=== PATIENT | female | born 1940 | race Caucasian/White ===

== ENCOUNTER 2017-05-01 05:09 | Inpatient (IN) | payer MEDICARE, OTHER ==
[~2017-05-01] VITALS: Ht 157.5 cm; Wt 69.0 kg
--- NOTE | ~2017-05-01 | HP ---
PATIENT'S NAME: SHANIQUA CORONEL [facility] AGE: 76 Y [address] ROOM: [place] [address] LOCATION: GPCU ADMIT DATE: 05/01/2017 History & Physical DISCHARGE DATE: FAMILY PHYSICIAN: PHYSICIAN, UNKNOWN ATTENDING PHYSICIAN: VERNON HIGHTOWER V DATE OF SERVICE: CHIEF COMPLAINT: High blood sugars. HISTORY OF PRESENT ILLNESS: The patient is a 76-year-old female with past medical history of insulin- dependent diabetes, on an insulin pump; coronary artery disease, status post bypass in 2006; and stenting approximately 2 years ago. The patient presented to [place] yesterday afternoon with complaints of hyperglycemia. She was found to be in mild DKA and treated with subcutaneous insulin and improved. Subsequent to that, she was discharged and went to [facility], where she had a burger without buns as well as some ice cream. Initially, she felt well and subsequently developed nausea and once again has profound hyperglycemia. She went back to the ER in [place] and at this time, she was found to have a troponin of 2. Of note, the patient did have some pronounced ST depressions in leads V5 and V6 on her EKG from her first trip to the ER, though on the second EKG, those changes are not as profound. The patient herself does not endorse any new chest pain or shortness of breath. She endorses a chronic burning chest pain, which she has had for several years and which is exacerbated by rest. Aside from a single episode of vomiting, she has been asymptomatic. She attributes her hyperglycemia due to 2 weeks of psychological stress related to her 's hospitalization. REVIEW OF SYSTEMS: All systems have been reviewed and are negative aside from pertinent positives mentioned above. PAST MEDICAL HISTORY: 1. Insulin-dependent diabetes. 2. Diabetic nephropathy. 3. Coronary artery disease. 4. Status post CABG 20 years ago. 5. Status post stenting 2 years ago. PATIENT'S NAME: SHANIQUA CORONEL [facility] AGE: 76 Y [address] ROOM: [place] [address] LOCATION: GPCU ADMIT DATE: 05/01/2017 History & Physical DISCHARGE DATE: FAMILY PHYSICIAN: PHYSICIAN, UNKNOWN ATTENDING PHYSICIAN: VERNON HIGHTOWER V SURGICAL HISTORY: She has a history of hysterectomy. CURRENT MEDICATIONS: Insulin pump and the remainder is being compiled. FAMILY HISTORY: Reviewed and is noncontributory due to her advanced age and multiple medical problems. SOCIAL HISTORY: Negative for history or ongoing toxic habits. PHYSICAL EXAMINATION: VITAL SIGNS: Blood pressure 184/90, heart rate is 70, saturating 96% on room air, afebrile, respirations are 16. GENERAL APPEARANCE: A well-developed, well-nourished, elderly and frail female, in no acute distress. NEUROLOGIC: Nonfocal. HEENT: Pupils are equal and reactive to light. LYMPHATIC: No cervical lymphadenopathy. ENDOCRINE: No thyromegaly. LUNGS: Clear to auscultation in all field. HEART: Heart rate is regular with no appreciable murmurs, gallops, or rubs. GI: Abdomen is soft, nontender, nondistended. : No costovertebral angle tenderness. VASCULAR: 2+ pedal pulses. MUSCULOSKELETAL: No muscle or joint abnormalities. SKIN: Warm and dry. PSYCHIATRIC: Reveals appropriate mood, cognition, and affect. LABORATORY DATA: Review of the studies from outside facility is significant for a troponin I of 2.6, CK-MB 5.3, myoglobin of 338. Hemoglobin of 8.0, which is down from 10 earlier in the day. Creatinine of 1.7. Sodium of 138, potassium of 4.2, glucose 314, and an Accu-Chek of 160 here. Unremarkable coags. White count is 7.3. EKG shows sinus rhythm at 78 beats per minute with ST depressions in leads V2 through V6. No other abnormalities. ASSESSMENT AND PLAN: This is a 76-year-old female who will be admitted with: 1. Cmw-RC-dbihgfzeq myocardial infarction; at this point, we will start the patient on nitroglycerin drip due to her elevated blood pressure. I will also start her on heparin, aspirin, and check her lipids. We will request a Cardiology evaluation. We will also start the patient on IV PATIENT'S NAME: SHANIQUA CORONEL [facility] AGE: 76 Y [address] ROOM: [place] [address] [facility] AD[facility] DATE: 05/01/2017 History & Physical DISCHARGE DATE: FAMILY PHYSICIAN: PHYSICIAN, UNKNOWN ATTENDING PHYSICIAN: VERNON HIGHTOWER V hydration in anticipation of possible cardiac catheterization due to her diminished renal function. 2. Diabetic ketoacidosis, this has resolved and we will keep the patient n.p.o. and put her on a sliding scale. 3. Chronic kidney disease stage 3 by creatinine. We will hydrate the patient as above and monitor her renal function. We will consider Nephrology evaluation. 4. Insulin-dependent diabetes. The patient does not currently have her pump and she will be on sliding scale as above. 5. Additional management will depend on clinical course. Time dedicated to this patient's encounter is 35 minutes. MD GALINA HUANG/zenaida /[id number] D: [id number] T: [id number] HISTORY & PHYSICAL
--- NOTE | ~2017-05-01 | DS ---
PATIENT'S NAME: SHANIQUA CORONEL [facility] AGE: 76 Y [address] ROOM: [place] [address] LOCATION: GPCU ADMIT DATE: 05/01/2017 Discharge Summary DISCHARGE DATE: 05/06/2017 FAMILY PHYSICIAN: Physician, Unknown ATTENDING PHYSICIAN: Romoe Salinas V FINAL DIAGNOSES: 1. Non-ST elevation myocardial infarction, status post PCI of RCA with two drug-eluting stents on May 02, 2017, by Dr. Sierra. 2. Diabetic ketoacidosis. 3. Insulin-dependent diabetes mellitus, pump using. 4. Viral bronchitis. 5. Acute kidney injury on stage 3 chronic kidney disease. 6. Escherichia coli urinary tract infection. 7. Essential hypertension. 8. Orthostasis secondary to autonomic dysfunction. 9. Iatrogenic volume overload. HISTORY OF PRESENT ILLNESS: For details of admission, please see the history and physical dictated by Dr. Salinas. In short, the patient was transferred from [place]. She presented the day prior with complaints of hyperglycemia. She was found to have mild DKA, and she was initially treated and then had to return. When she was in the emergency room the second time, she was found to have ST changes and her troponin was elevated. At that time, she was transferred to [facility]. LABORATORY DATA: Sodium on admission was 140, discharge 138; potassium on admission 4.5, got as low as 3.3 on May 04, 2017, at discharge 4.7; BUN on admission was 31, discharge 28; creatinine on admission was 1.4, went up to 1.6 on May 01, 2017, and then returned to 1 at discharge. Cholesterol was 96, HDL 44, LDL 40. Her iron was 87, iron binding capacity 181, percent sat 48. CK on admission was 235. Troponin on admission was 6.79 and then did gradually decline. ProBNP on May 03, 2017, was 16,957. Folate was 344. White blood cell count on admission was 6.6, hemoglobin 8.5, hematocrit 25.5, platelet count 167. Her counts remain stable during the hospital stay. Urine culture in the hospital grew E. coli greater than 100,000 colonies. X-RAY DATA: A chest x-ray done for coughing and wheezing did show vascular congestion. Echocardiogram showed the EF to be 60%. She had grade 2 diastolic dysfunction, mild pulmonary hypertension. HOSPITAL COURSE: The patient was admitted to PCU with the diagnosis of acute coronary syndrome. She was started on IV heparin, nitroglycerin, given an aspirin. She is also started on IV insulin to help control her blood sugar. She was seen in consultation by Dr. Sierra and medications were adjusted PATIENT'S NAME: SHANIQUA CORONEL [facility] AGE: 76 Y [address] ROOM: [place] [address] LOCATION: GPCU ADMIT DATE: 05/01/2017 Discharge Summary DISCHARGE DATE: 05/06/2017 FAMILY PHYSICIAN: Physician, Unknown ATTENDING PHYSICIAN: Romeo Salinas V including adjusting her beta odilon and long-acting nitrate. The decision was made that she needed to go to the clay processing labourer. Because of her stage 3 chronic kidney disease and her acute kidney injury, Renal was asked to see her preoperatively. They did give her fluid and also a dose of Mucomyst. She was taken to the clay processing labourer, at which time, 2 stents were placed in the right coronary artery. Please see Dr. Sierra's, phone note regarding this. Postoperatively, she was returned to the floors. She was continued on her IV insulin protocol. Her blood pressures were elevated, so she did receive hydralazine. When she was able to eat, she was going to be placed on Levemir and NovoLog with a plan to restart her own pump the next day. She did complain of a cough. There was concern that this represented volume overload. A chest x-ray was done and was suggestive of that. She did receive IV diuretics, so she was given albumin along with that. Her potassium was low, so she was also given Neutra-Phos. She responded very nicely to that. She began having issues with dysuria, urine culture was obtained. Cardiology did make some adjustments in her anti-platelet medications and did opt to give her another dose of Bumex. As we treated the volume overload, the cough did improve. Urine grew greater than 100,000 colonies of E. coli, and she was felt to be okay on the Keflex. On the morning of May 05, 2017, the patient had a near syncopal episode. She had gotten up and felt very lightheaded and dizzy. She had received the diuresis the day before, and her ProAmatine was held. Orthostatic blood pressures were obtained, and she was significantly orthostatic. It was felt that she had some degree of autonomic dysfunction due to her diabetes. She was given some IV albumin and monitored. On the morning of May 06, 2017, it was felt that she was stable for discharge and discharged to home. DISCHARGE INSTRUCTIONS: She is to follow [facility] diet. She is to see Cardiology in 2 weeks. She is to have lab pre clinic. Follow up with Zita Watkins in 5 to 7 days. She is to start phase II cardiac rehab in [place]. MEDICATIONS: 1. Aspirin 81 mg daily. 2. Lipitor 40 mg daily. 3. Keflex 500 mg 3 times daily, to stop on May 08, 2017. 4. Vitamin D 2000 units daily. 5. Promethazine cough medicine with codeine 5 to 10 mL at bedtime. 6. Prozac 20 mg daily. 7. Neurontin 600 mg at bedtime. 8. Plavix 75 mg daily. 9. Humibid LA 600 mg 3 times daily for the cough. 10. She is to use her own IV insulin pump. 11. Imdur 30 mg daily. 12. Synthroid 25 mcg daily. PATIENT'S NAME: SHANIQUA CORONEL [facility] AGE: 76 Y [address] ROOM: [place] [address] LOCATION: GPCU ADMIT DATE: 05/01/2017 Discharge Summary DISCHARGE DATE: 05/06/2017 FAMILY PHYSICIAN: Physician, Unknown ATTENDING PHYSICIAN: Romeo Salinas V 13. Midodrine 10 mg at 7 in the morning, 5 mg at noon and at bedtime. 14. Lopressor 25 mg twice daily. OVERALL PROGNOSIS AT DISCHARGE: Good. I did discuss this with her and her daughter. We did make arrangements for her to receive home health to help with her medications and monitoring her vital signs. GREG BYRD MD LAW/modl /[id number] d: 05/07/17 0200 t: 05/09/17 1813, DISCHARGE SUMMARY
--- NOTE | ~2017-05-01 | ECHO ---
Transthoracic Echocardiography Report (TTE) Demographics Patient Name SHANIQUA CORONEL Date of Study 05/01/2017 Patient Number [id number] Visit Number [id number] Date of 1940 Room Number G6307 Accession Number [id number] Gender Female Age 76 year(s) Referring Executive Admin Lolita Bell [facility] Physician Physician Interpreting [place] [employer] Workforce Developer And Manager Physician MD Supervising Ordering Physician Rita Koch MD/PA [place] Nurse Stress Rn Manager Conclusions Contractility Score Summary Normal Left Ventricular contractility was noted. Summary Normal LV/RV size and systolic function. The estimated left ventricular ejection fraction is 60%. Diastolic assessment reveals Grade II pseudonormal diastolic function . The left atrium is moderately dilated by LA volume index measurement. There is mild pulmonary hypertension. The pulmonary pressure (RVSP) is 42 mmHg. No significant valvular abnormalities. Procedure Type of Study TTE procedure:2D Echocardiogram. Procedure Date Date: 05/01/2017 Start: 11:53 AM Study Location: Inpatient Portable Technical Quality: Good visualization Indications:Chest pain. Appropriate Use Criteria: 9 Patient Status: Routine HR: 80 bpm BP: 177/71 mmHg M-Mode/2D Measurements LV Diastolic Dimension: 4.87 cm LV Systolic Dimension: 2.76 cm LV Septum Diastolic: 1.02 cm LV PW Diastolic: 0.99 cm AO Root Dimension: 2.9 cm Cardiac Output: 4.77 l/min AV Cusp Separation: 1.4 cm RV Diastolic Dimension: 2.19 cm LA volume: 68 ml LVOT: 2 cm RV Base: 2.69 cm LVOT VTI: 19 cm RV Mid: 2.29 cm LV Stroke volume: 59.66 ml TAPSE: 1.82 cm TDI-S': 9.63 cm/s Doppler Measurements AV Peak Velocity: 1.91 m/s MV Peak E-Wave: 1.2 m/s AV Peak Gradient: 14.59 mmHg MV Peak A-Wave: 0.82 m/s AV Mean Gradient: 7 mmHg MV E/A Ratio: 1.46 LVOT Peak Velocity: 0.87 m/s MV P1/2t: 68 msec TR Gradient:32.49 mmHg PV Peak Velocity: 1.16 m/s Estimated RAP:10 mmHg PV Peak Gradient: 5.38 mmHg Estimated RVSP: 42 mmHg Estimated PASP: 42.49 mmHg E' Septal Velocity: 0.04 m/s A' Septal Velocity: 0.05 m/s Findings Left Ventricle Diastolic assessment reveals Grade II pseudonormal diastolic function . Right Ventricle Normal right ventricle structure and function. Left Atrium The left atrium is moderately dilated by LA volume index measurement. Right Atrium Normal right atrial size. IVC measures 1.51 cm with inspiratory collapse. Mitral Valve Trivial mitral regurgitation by color Doppler. Moderate to severe mitral annular calcification. Tricuspid Valve Mild tricuspid regurgitation by color Doppler. There is mild pulmonary hypertension. The pulmonary pressure (RVSP) is 42 mmHg. Pulmonic Valve Normal pulmonic valve structure and function. Pericardial Effusion No evidence of pericardial effusion. Pleural Effusion No evidence of pleural effusion. Contractility Score LV regional wall motion:(0-Non visualized 1-Normal 2-Hypokinesis 3-Akinesis 4-Dyskinesis 5-Aneurysm) Signature dtt: BRADEN MANUEL dtd: 05/01/17 1153 Physician Self Edit
--- NOTE | ~2017-05-01 | PUL ---
PATIENT'S NAME: SHANIQUA CORONEL [facility] AGE: 76 Y [address] ROOM: [address] [address] LOCATION: GPCU ADMIT DATE: 05/01/2017 Pulmonary DISCHARGE DATE: 05/06/2017 FAMILY PHYSICIAN: Physician, Unknown ATTENDING PHYSICIAN: Romeo Salinas V NAME OF PROCEDURE: Overnight Pulse Oximetry DATE OF PROCEDURE: May 04 to May 05, 2017 REASON FOR EXAM: Nocturnal hypoxemia RESULTS: The test was performed on room air. The recording time was 8 hours, 29 minutes, and 16 seconds, with a total valid sampling time of 8 hours, 16 minutes and 12 seconds. The highest pulse was 93, lowest pulse was 64, with a mean pulse of 71. The highest SpO2 was 100%, lowest SpO2 was 91%, with a mean SpO2 was 96%. The patient did not spend any time with SpO2 less than 89%. The desaturation event index was normal at 4. PHYSICIAN INTERPRETATION: The patient does not have evidence of significant nocturnal hypoxia and would not qualify for supplemental oxygen as per Medicare criteria. MD SHARI KNUTSON/quan /[id number] dtt: 05/11/17 0722 , RON STODDARD dtd: 05/10/17 1455
--- NOTE | ~2017-05-01 | CON ---
[facility] 76 Y [address] ROOM: [place] [address] LOCATION: GPCU ADMIT DATE: 05/01/2017 Consultation DISCHARGE DATE: 05/06/2017 FAMILY PHYSICIAN: Physician, Unknown ATTENDING PHYSICIAN: Romeo Salinas V CORRECTED PATIENT ACCOUNT INFORMATION 05/17/17 AO DATE OF CONSULTATION: 05/01/2017 REFERRING PHYSICIAN: Isabel Tenorio MD REQUESTING PHYSICIAN: Dr. Franco. REASON FOR CONSULTATION: Elevated BUN and creatinine. HISTORY OF PRESENT ILLNESS: The patient is a 76-year-old white female with history of type 1 diabetes for at least 60 years. She does have diabetic retinopathy and neuropathy. She has only trace protein in the urine. Her baseline creatinine was 1.3. She denies taking any nonsteroidals or STALEY-2 inhibitors. She is not on JASON inhibitor or ARB. She comes with a diagnosis of DKA and has been diagnosed with a hdv-BG-ozpuqnern PR. She will need a cardiac catheterization. Her creatinine is up to 2.0 on 04/30/2017 and today is 1.4. She has a risk of contrast nephropathy and therefore I have been asked to see her for a Nephrology consultation. ALLERGIES: NO KNOWN DRUG ALLERGIES. MEDICATIONS: 1. Promethazine p.r.n. 2. Midodrine 10 mg twice a day. 3. Simvastatin 20 mg a day. 4. Prozac 20 mg a day. 5. Neurontin 300 mg twice a day. 6. Levothyroxine 25 mcg a day. 7. Insulin per sliding scale. 8. Aspirin 81 mg a day. 9. Cholecalciferol 1000 IU a day. REVIEW OF SYSTEMS: GENERAL: She denies any fever or chills. She is tired. HEENT: Denies any sore throat or sinus congestion. CARDIOVASCULAR: She denies any chest pain at this time. RESPIRATORY: Denies any shortness of breath, cough, or wheezing. PATIENT'S NAME: SHANIQUA CORONEL [facility] AGE: 76 Y [address] ROOM: [place] [address] LOCATION: GPCU ADMIT DATE: 05/01/2017 Consultation DISCHARGE DATE: 05/06/2017 FAMILY PHYSICIAN: Physician, Unknown ATTENDING PHYSICIAN: Romeo Salinas V GI: She has no nausea or vomiting. : She had increased frequency of urination. MUSCULOSKELETAL: Denies any joint pain or swelling. SKIN: Denies any rash or pruritus. Denies any allergies or hay fever. LYMPHATIC/HEMATOLOGIC: Denies any lymph enlargement, easy bruising. Denies any heat or cold intolerance. Denies any sadness, crying spells, poor concentration, or panic attack. PAST MEDICAL HISTORY: Diabetes mellitus, diabetic retinopathy, neuropathy, coronary artery disease, stage 3 chronic kidney disease. PAST SURGICAL HISTORY: History of hysterectomy, coronary artery bypass grafting. SOCIAL HISTORY: She lives at home in [place]. She has no history of tobacco or alcohol. FAMILY HISTORY: No family history of kidney disease or dialysis. PHYSICAL EXAMINATION: GENERAL APPEARANCE: A 76-year-old white female lying in the hospital bed, not in acute distress. VITAL SIGNS: Afebrile, pulse is 72, systolic blood pressure 136, diastolic of 72, respiratory rate of 18. HEENT: Head is normocephalic. Pupils are round and equal. Normal eyelids and conjunctivae. Oral cavity clear. Moist mucosa. NECK: Trachea is central. No thyromegaly. Flat jugular veins. No bruits. CARDIAC: Heart sounds are audible in all areas without any gallop or murmur. Pulses regular in rhythm. LUNGS: Bilaterally clear to auscultate anteriorly. No intercostal retractions ABDOMEN: Soft, nontender. Cannot palpate any liver or spleen. EXTREMITIES: She has no clubbing or cyanosis. LABORATORY DATA: WBC 6.6, hemoglobin 8.2, hematocrit 25.5, and platelet count of 167. Glucose 164, BUN 31, creatinine 1.4. Sodium 140, potassium 4.4, chloride 108, bicarb 22, calcium 7.9, albumin of 3.0, and GFR of 36. ASSESSMENT: 1. Acute on chronic kidney injury, most likely this is due to prerenal etiology. The patient had diabetic ketoacidosis and usually they are volume depleted. Creatinine had gone up to 2.0. With volume PATIENT'S NAME: SHANIQUA CORONEL [facility] AGE: 76 Y [address] ROOM: [place] [address] [facility] AD[facility] DATE: 05/01/2017 Consultation DISCHARGE DATE: 05/06/2017 FAMILY PHYSICIAN: Physician, Unknown ATTENDING PHYSICIAN: Romeo Salinas, creatinine improved to 1.4. 2. Stage 3 chronic kidney disease, probably from vascular disease. The patient has only trace protein in the urine. 3. Diabetes mellitus. 4. Coronary artery disease. 5. Hypothyroidism. PLAN: I think we can proceed with cardiac catheterization in the morning as soon as her creatinine stays 1.4 or below. We will give Mucomyst and bicarbonate per protocol. We will follow her renal function very closely. Did explain to the patient that she has slight status of having contrast-induced nephropathy. I also advised her not to take any nonsteroidals or STALEY-2 inhibitors. I would like to thank Dr. Franco for allowing me to participate in this patient's care. M MD RENETTA ESCALANTE/zenaida /[id number] CORRECTED PATIENT ACCOUNT INFORMATION 05/17/17 AO d: 05/01/17 1533 t: 05/17/17 0915, CONSULTATION REPORT
--- NOTE | ~2017-05-01 | CATH ---
Cardiac Diagnostic + PCI Report Demographics Patient Name HOMER Frankel Gender Female Date of 1940 Age 76 year(s) Patient Number [id number] Date of Study 05/02/2017 Visit Number [id number] Room Number [id number] [place] [id number] Ht 157.48 cm Wt 68.04 kg Referring Rita Romeo Primary Physician Physician August ROBLEDO [facility] Physician Isabel ROBLEDO Diagnostic [facility] Assisting Physician Physician Isabel ROBLEDO Interventional [facility] Physician [employer] Culler Physician Isabel ROBLEDO Findings and Conclusions Diagnostic Findings and Conclusion 1) MAYBERRY to LAD/Diag Patent 2) Obstructive lesion in Proximal / Distal RCA Diagnostic Recommendations 1) PCI of RCA distal with JESUS 2) NSTEMI with elevated troponin of 6.7. Interventional Findings and Conclusion 1) PCI of distal RCA with JESUS 2) Proximal RCA 70%, IFR 0.89, The proximal RCA lesion is physiologically significant, recommend PCI 3) PTCA with NC balloon at 20 carmelina for mid RCA lSR lesion at site of stent overlap (2 layers of stent in area of ISR) Interventional Recommendations DAPT for one year Aggressive med therapy IV hydration Limited images obtained to conserve contrast use and minimize risk of OSCAR (h/o CKD/Insulin dependant DM), only 60 ml contrast used for cath/PCI. Procedure Description The patient was brought to the diagnostic cardiac catheterization-EP laboratory in the fasting, non-sedated state. Informed consent was obtained in the written and verbal form after the risks and benefits were explained. The patient had no further questions and agreed to proceed. The planned puncture-incision site(s) were shaved and prepped with ChloraPrep and draped in the usual sterile manner. Conscious sedation, supplemental oxygen, and pain control medications were delivered by a registered nurse under physician guidance. Surface ECG rhythm, blood pressure measurement, and pulse oximetry were monitored throughout the procedure. Arterial access. The access site was infiltrated with lidocaine. The vessel was entered with the Seldinger technique. A sheath was advanced into the vessel and used for catheter placement. Selective left coronary angiography. A catheter was advanced into the left coronary vessel ostium under Fluoroscopic guidance. Contrast was injected by hand. Images were obtained in multiple projections. Selective right coronary angiography. A catheter was advanced into the right coronary vessel ostium under fluoroscopic guidance. Contrast was injected by hand. Images were obtained in multiple projections. Selective MAYBERRY graft angiography. A catheter was advanced into the left internal mammary graft ostium under fluoroscopic guidance. Contrast was injected by hand. Images were obtained in multiple projections. Angioplasty and Stent Placement: A guiding catheter was used to intubate the vessel. A 0.14 wire was then used to cross the lesion. A balloon catheter was placed across the lesion and inflated. The balloon catheter was then removed. A Drug Eluting Stent was placed and inflated. Post placement angiograms were performed. FFR measurement was performed. The vessel was entered with a guiding catheter. The FFR wire was normalized and then advanced across the lesion. Maximum hyperemia was achieved using adenosine. Angioplasty and Stent Placement: A guiding catheter was used to intubate the vessel. A 0.14 wire was then used to cross the lesion. A balloon catheter was placed across the lesion and inflated. The balloon catheter was then removed. A Drug Eluting Stent was placed and inflated. Post placement angiograms were performed. Arterial artery hemostasis. Hemostasis was achieved. The patient was transferred to a regular nursing floor via cart accompanied by a nurse. The patient left the laboratory in stable condition. Diagnostic Cath Status: Urgent Interventional Cath Status: Urgent Procedure Procedure Type Diagnostic procedure:Angiography:, Coronary Angios w/Grafts PCI procedure:Drug Eluting Coronary Stent:, RCA, PTCA:, RCA, Additional Imaging:, FFR/iFR:, Initial Vessel Indications: Non-ST elevation MD. The procedure was explained in detail to the patient. Risks, complications and alternative treatments were reviewed. Written consent was obtained. Medications Reviewed with Patient prior to Procedure. Angiographic Findings Dominance: Right Cardiac Arteries and Lesion Findings LMCA: Normal (0% Stenosis). LAD: Abnormal. Lesion on Prox LAD: 90% stenosis . Lesion on Mid LAD: 100% stenosis .Chronic total occlusion. LCx: Abnormal.The 1st ob Hanna appears abnormal. Lesion on Mid CX: 30% stenosis . Lesion on Dist CX: 20% stenosis . RCA: Abnormal. Lesion on Dist RCA: 80% stenosis 10 mm length reduced to 0%. Pre procedure VALERIANO II flow was noted. Post Procedure VALERIANO III flow was present. The guidewire cross was successful.The lesion was diagnosed as a moderate risk lesion.Culprit lesion. Devices used - Runthrough NS .014 x 180. Number of passes: 2. - NC Emerge Balloon 3.0 x 12. 1 inflation(s) to a max pressure of: 12 carmelina. - Promus Premier 3.0 x 12 Stent. 2 inflation(s) to a max pressure of: 12 carmelina. Lesion on Mid RCA: 80% stenosis 10 mm length reduced to 0%. Pre procedure VALERIANO III flow was noted. Post Procedure VALERIANO III flow was present. The lesion was diagnosed as a moderate risk lesion.Culprit lesion. The lesion was previously treated with the following techniques: stent unknown type. This is in-stentrestenosis. Devices used - NC Emerge Balloon 3.0 x 12. 1 inflation(s) to a max pressure of: 18 carmelina. Lesion on Prox RCA: 70% stenosis 10 mm length reduced to 0%. Pre procedure VALERIANO III flow was noted. Post Procedure VALERIANO III flow was present. The guidewire cross was successful.The lesion was diagnosed as a moderate risk lesion.Culprit lesion. FFR + + + + !FFR !Stage/Medication !Dosage ! + + + + !0.89 ! ! ! + + + + Devices used - db4objectsrata Pressure Wire. Number of passes: 1. - NC Emerge Balloon 3.0 x 12. 1 inflation(s) to a max pressure of: 12 carmelina. - Runthrough NS .014 x 180. Number of passes: 1. - Promus Premier 3.0 x 12 Stent. 2 inflation(s) to a max pressure of: 14 carmelina. Lesion on 1st RPL: 20% stenosis . Lesion on R PDA: 30% stenosis . Cardiac Grafts - There is a MAYBERRY graft that originates at the MAYBERRY and attaches to the 1st Diag (The MAYBERRY graft is patent.).The graft from 1st Diag jumps to Mid LAD. Coronary Tree Procedure Data Procedure Date Date: 05/02/2017Start: 11:05 AMEnd: 12:11 PM Entry Locations - Retrograde Percutaneous access was performed through the Right Femoral artery (Primary location). A 6 Fr sheath was inserted. Hemostasis was successfully obtained using Angio-Seal STS PLUS (St. Jovany). Closure Comments: Dr. Sierra. Procedure Medications Order and Administration + + + + + !Time !Medication !Dosage !Route ! + + + + + !05/02/2017 11:20 !Angiomax (Bivalirudin) !52.5 mg !I.V. bolus ! !AM !(ACC_5) ! ! ! + + + + + !05/02/2017 11:21 !Angiomax (Bivalirudin) !1.75 mg/kg/hr!I.V. drip ! !AM !(ACC_5) ! ! ! + + + + + !05/02/2017 11:32 !Nitroglycerin !200 mcg !I.C. ! !AM ! ! ! ! + + + + + !05/02/2017 11:35 !Fentanyl !25 mcg !I.V. ! !AM ! ! ! ! + + + + + !05/02/2017 11:45 !Versed !0.5 mg !I.V. ! !AM ! ! ! ! + + + + + !05/02/2017 11:53 !Angiomax (Bivalirudin) ! !I.V. drip ! !AM !(ACC_5) ! ! ! + + + + + !05/02/2017 11:59 !Brilinta (Ticagrelor) !180 mg !P.O. ! !AM !(ACC_20) ! ! ! + + + + + Devices Used - A5 Fr. BS JL 4 Diag. Catheterwas used for:Left coronary angiography. - A5 Fr. BS JR 4 Diag. Catheterwas used for:Right coronary angiography. - A6 Fr. JR4 Guide Catheterwas used for:RCA Intervention. Contrast Material - Isovue 25038 ml Fluoroscopy Time: Diagnostic: 15:30 minutes. Total: 15:30 minutes. Fluoroscopy Dose: Diagnostic: 714 mGy. Total: 714 mGy. Estimated Blood Loss: 15 ml. Additional [facility] PCI Information PCI Indication:Immediate PCI for STEMI. Medical History Performed Procedures and Imaging Results - No [facility] stress or imaging studies were performed. Allergies - Sulfa. Risk Factors The patient risk factors include:prior PCI on 11/28/2013; prior CABG on 11/28/1996;hypertension, family history of premature CAD, insulin-treated diabetes mellitus, last creatinine: 1.3 mg/dl, creatinine clearance: 38.31 ml/min and dyslipidemia. Admission Data Admission Date: 05/01/2017 Admission Time: 05:09 AM Admit Source: [facility] Insurance Payors: Medicare. Admission Medications + +------+------+ + + + + !Medication !Dosage!Times !Last !Last !Administered !Comments ! ! ! !Per !Delivery !Delivery ! ! ! ! ! !Day !Date !Time ! ! ! + +------+------+ + + + + !Aspirin ! ! ! ! !Yes ! ! !(any) ! ! ! ! ! ! ! + +------+------+ + + + + !Nitrates (iv! ! ! ! !Yes ! ! !or buccal) ! ! ! ! ! ! ! + +------+------+ + + + + !Statin (any)! ! ! ! !Yes ! ! + +------+------+ + + + + !Beta Demetri! ! ! ! !Yes ! ! !(any) ! ! ! ! ! ! ! + +------+------+ + + + + Clinical Evaluation Leading to Procedure - The patient's CAD presentation was assessed as: Non-STEMI. 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 Anti-anginal medications were prescribed during the past two weeks. The medications are: Beta Blockers and Long Acting Nitrates. - The patient has been in a state of heart failure within the past two weeks. - The patient's heart failure status was assessed as NYHA Class II, with CHF symptoms of BAIG. Hemodynamics Condition: Rest O2 Consumption: Estimated: 147.92Heart Rate: 63 bpm Pressures (mmHg) +-----+ + !Site !Pressure ! +-----+ + !AO !101/30 (55) ! +-----+ + !AO !122/40 (70) ! +-----+ + Shunts Oxygen Values O2 Capacity 108.8 O2 Consumption 147.92 Signatures dtt: ISABEL MANUEL dtd: 05/02/17 1105 Physician Self Edit
--- NOTE | ~2017-05-01 | CON ---
[facility] 76 Y [address] ROOM: [place] [address] LOCATION: GPCU ADMIT DATE: 05/01/2017 Consultation DISCHARGE DATE: FAMILY PHYSICIAN: PHYSICIAN, UNKNOWN ATTENDING PHYSICIAN: VERNON HIGHTOWER V REFERRING PHYSICIAN: BRADEN MANUEL MD REQUESTING PROVIDER: Dr. Hightower. REASON FOR CONSULTATION: Non STEMI. CHIEF COMPLAINT: Weak and cough as well as chest pain. HISTORY OF PRESENTING ILLNESS: The patient is a 76-year-old female, who has past medical history significant for coronary artery disease, status post two-vessel CABG. She also has history of insulin-dependent diabetes mellitus and is on insulin pump. She has history of PCI about two years ago done at [facility]. The patient presented to [place] yesterday afternoon with complaints of feeling weak and tired and checked her blood sugar, it was very high. She was found to be in mild DKA and she was treated with subcu insulin and her sugars improved. She also reports not being very compliant with diet. She has been under a lot of stress recently with her 's health. She reports that she has had about 5 episodes of chest pain in the last few days, none in the last 24 hours. She reports an ache in the left side of her chest and she also had a little bit of nausea with that episode. An EKG showed mild ST depressions in the anterolateral leads. Her troponin there was elevated at 2.8, and they did call me and she was transferred here for further treatment and care. The patient does not have any episode of chest pain, heaviness, or pressure right now. She does report having chronic burning in her chest. She has been more fatigued and weak over the past few years. Her functional capacity has been decreasing due to fatigue. She has been having a cough with some yellow color sputum production. She was treated with azithromycin recently by her primary care physician. She does not have any fever. She does have occasional chills. No stroke-like symptoms, changes in her speech, or swallowing. No other acute complaints. She is quite comfortable during the interview. PAST MEDICAL HISTORY: 1. CAD status post CABG and PCI. PATIENT'S NAME: HOMER [facility] AGE: 76 Y [address] ROOM: [place] [address] LOCATION: GPCU ADMIT DATE: 05/01/2017 Consultation DISCHARGE DATE: FAMILY PHYSICIAN: PHYSICIAN, UNKNOWN ATTENDING PHYSICIAN: VERNON HIGHTOWER V 2. Insulin-dependent diabetes mellitus. 3. Diabetic nephropathy. 4. Chronic kidney disease, stage 3. 5. Hypertension. 6. Hyperlipidemia. 7. Orthostatic hypotension and symptoms have improved since starting midodrine. PAST SURGICAL HISTORY: 1. Hysterectomy. 2. Two-vessel CABG. 3. Right TKA. 4. . MEDICATIONS: Please see MAR. ALLERGIES: SULFA. REVIEW OF SYSTEMS: All review of systems discussed with the patient. Pertinent positives and negatives mentioned in the history of presenting illness. SOCIAL HISTORY: She lives in [place] with her . No tobacco or illicit drug abuse. FAMILY HISTORY: Positive for premature coronary artery disease. No sudden cardiac . PHYSICAL EXAMINATION: VITAL SIGNS: Blood pressure 138/80, heart rate in the 80s, afebrile, respirations 14, and O2 sats 100% on 2 L of oxygen. GENERAL: Alert and oriented to time, place, person, not in any apparent distress. Extraocular movements are intact. HEENT: Head atraumatic and normocephalic. Mucous membranes moist. Nose; bilateral nares are clear. NECK: Supple. HEART: S1, S2. Regular rate and rhythm. No murmurs, gallops, or rubs. LUNGS: Clear to auscultation bilaterally. No wheezing or crackles. ABDOMEN: Soft. Bowel sounds positive. EXTREMITIES: No lower extremity edema. MUSCULOSKELETAL: Able to move all extremities against gravity. No joint swellings. NEUROLOGIC: Alert and oriented. PATIENT'S NAME: SHANIQUA CORONEL [facility] AGE: 76 Y [address] ROOM: [place] [address] LOCATION: GPCU ADMIT DATE: 05/01/2017 Consultation DISCHARGE DATE: FAMILY PHYSICIAN: PHYSICIAN, UNKNOWN ATTENDING PHYSICIAN: VERNON HIGHTOWER V LABORATORY DATA: Sodium 140, potassium 4.5, glucose 164, CO2 of 22, anion gap 14.5. Creatinine 1.4. Protein 6.3, albumin 3. Alkaline phosphatase 52. AST 31, ALT 16. Estimated GFR is 36. CPK 235, CK-MB 9.8. Troponin 6.79. A1c 8.8. WBC 6.6, H and H 8.5 and 25.5, and platelets 167. INR 1. EKG, normal sinus rhythm with ST depressions in leads V4 to V6. IMPRESSION/PLAN: 1. Non ST elevation myocardial infarction with evidence of ischemic changes on ECG as well as elevated troponin at 6.8. She denies any chest discomfort at this time. She is quite comfortable. We will continue heparin drip, aspirin, metoprolol, and Lipitor and plan for cardiac cath in a.m. We will also get an echocardiogram to assess her left ventricular systolic function. We will need to minimize contrast use given her chronic kidney disease and GFR of only 34. We will also discuss with Nephrology about any further recommendations if they have any. 2. She understands she is at high risk for contrast-induced nephropathy including need for dialysis after cardiac cath. We will also get cardiac cath report as well as CABG report from [facility] and again use the least amount of contrast possible with minimal views to minimize risk of worsening her renal function. 3. Insulin-dependent diabetes mellitus with diabetic nephropathy. Her risk of OSCAR from the cath is quite high, however, at this point, given her ischemic changes on ECG non ST-elevation myocardial infarction with significantly elevated cardiac biomarkers, the benefits are greater than the risks of cardiac cath, so we will go ahead and proceed. Risk of bleeding, bruising, infection, 1 in 100 cases risk of heart attack, , stroke, OR, OSCAR, including need for hemodialysis is slightly higher than average given her risk factors. Risks of emergency bypass, CVA also discussed with the patient and she understands. 4. Insulin-dependent diabetes mellitus. Her blood sugars are much better. Anion gap is normal at this time. Continue aggressive medical therapy per hospitalist team. 5. Hyperlipidemia. She is on statin therapy and her LDL goal is less than 70. We will check a fasting lipid profile in the morning. 6. Chronic kidney disease, stage 3 to 4. Her GFR is 36. We will take all precautions prior to cath. 7. Anemia. She is quite anemic and her hemoglobin is only 8.5. This might be secondary to chronic kidney disease. We will need to keep a close eye on it. No obvious bleeding issues. She will likely benefit from DAPT. She does not have any upcoming surgeries or contrast allergies. Thank you very much for allowing us to participate in the care of Mrs. Coronel. PATIENT'S NAME: SHANIQUA CORONEL [facility] AGE: 76 Y [address] ROOM: [address] [place] [address] LOCATION: [facility] ADMIT DATE: 05/01/2017 Consultation DISCHARGE DATE: FAMILY PHYSICIAN: PHYSICIAN, UNKNOWN ATTENDING PHYSICIAN: VERNON HIGHTOWER V BRADEN MANUEL MD AT/modl /[id number] d: 05/01/17 0939 t: 05/02/17 1630, CONSULTATION REPORT
--- NOTE | 2017-05-01 05:49 | NUR ---
PATIENT IS A/OX3, VSS ON ROOM AIR. NO COMPLAINTS OF PAIN. PT. WAS ADMITED IN [place] LAST EVENING FOR DKA, BLOOD SUGARS WERE IN THE 700'S. PT. HADN'T BEEN FEELING WELL AT HOME FOR THE LAST COUPLE OF DAYS, THEN DECIDED TO GO INTO THE ED. PT. HAS HER OWN INSULING PUMP, WHICH HAS BEEN D/C'D. TROPONIN BECOME ELEVATED SO PT. WAS TRANSFERED HERE TO [facility] VIA FLIGHT TO SEE DR. MEZA THIS AM. HX: HTN, STENTS, DIABETES, SMOKER, ANEMIA. PT. UP SBA. ACCU-CHECK @ 0555 WAS 169, STOPPING INSULIN DRIP PER
[2017-05-01 07:02] LABS: BASOPHIL % 0.3 %; HEMATOCRIT 25.5 % (33.0-46.0); HEMOGLOBIN 8.5 g/dL (10.0-15.0); IMMATURE GRANULOCYTE % 0.3 %; LYMPHOCYTE % 14.4 %; MCH 30.6 pg (27.0-34.0); MCHC 33.3 gm/dL (32.0-36.5); MCV 91.7 fl (83.0-98.0); MONOCYTE # 0.9 K/uL (0.0-1.0); MONOCYTE % 13.2 %; MPV 11.1 fl (9.4-12.4); NEUTROPHIL # (ANC) 4.7 K/uL (1.8-7.8); NEUTROPHIL % 71.8 %; NRBC % 0 /100WBC (0-0.00); PLATELET COUNT 167 K/uL (150-450); RBC 2.78 M/uL (3.50-5.50); RDW-CV 14.5 % (11.9-14.6); WBC 6.6 K/uL (4.0-11.0)
[2017-05-01 07:11] LABS: INR - (THERAPEUTIC) 1.01 (0.92-1.07); PROTIME 10.6 SECONDS (9.8-11.4); PTT 27 SECONDS (25-32)
[2017-05-01 07:23] LABS: ANION GAP 14.5 (10.0-19.0); CALCIUM 7.9 mg/dL (8.5-10.5); CREATININE 1.4 mg/dL (0.5-1.1); PHOSPHORUS 2.8 mg/dL (2.5-4.9); POTASSIUM 4.5 mMol/L (3.7-5.1); TOTAL BILIRUBIN 0.3 mg/dL (0.0-1.5); TOTAL PROTEIN 6.3 g/dL (6.0-8.4)
[2017-05-01] MEDS ORDERED: PROMETH-CODEIN 65 ML PO (10:01)
[2017-05-01] MEDS ORDERED: MIDODRINE HCL10 MG PO ×2 (10:01→10:02)
[2017-05-01] MEDS ORDERED: ZOCOR20 MG PO (10:02)
[2017-05-01] MEDS ORDERED: LEVOTHROID (SY25 MCG PO (10:02)
[2017-05-01] MEDS ORDERED: NEURONTIN300 MG PO (10:02)
[2017-05-01] MEDS ORDERED: PROZAC20 MG PO (10:02)
[2017-05-01] MEDS ORDERED: VITAMIN D-32000 UNI1 PO (10:04)
[2017-05-01] MEDS ORDERED: ASPIRIN LO-DOSE81 MG PO (10:04)
[2017-05-01] MEDS ORDERED: NOVOLOG100 UNIT/M SUB-Q (10:04)
[2017-05-01 15:04] LABS: ALBUMIN 2.7 gm/dL (3.5-5.0); ANION GAP 13.6 (10.0-19.0); CALCIUM 7.8 mg/dL (8.5-10.5); CREATININE 1.6 mg/dL (0.5-1.1); PHOSPHORUS 2.7 mg/dL (2.5-4.9); POTASSIUM 4.6 mMol/L (3.7-5.1)
--- NOTE | 2017-05-01 18:38 | NUR ---
Significant Event: VSS AND 2L/NC. AFEBRILE. HEPARIN GTT STARTED PER PROTOCOL WITHOUT BOLUS; CONTINUES AT 1000 UNIT/HR NEXT PTTHP AT 2100. DENIES CP. TROPONIN ELEVATED, DR MEZA AWARE. BS 139-200S RANGE; DIABETIC ED CONSULT T[facility]W REGARDING INSULIN PUMP. VOIDS WITH ADEQUATE UOP, BM X2. FAMILY AT BEDSIDE AND UPDATED ON POC. REPOSITIONED Q2H. Follow up: NPO P MN FOR HEART CATH IN AM; NA BICARB PROTOCOL PRIOR TO CATH IN AM AND D/C HEPARIN 1.5 HRS BEFORE CATH PER DR. MEZA.
[2017-05-02 03:39] LABS: HEMATOCRIT 24.8 % (33.0-46.0); MCH 30.2 pg (27.0-34.0); MCHC 32.3 gm/dL (32.0-36.5); MCV 93.6 fl (83.0-98.0); MPV 10.8 fl (9.4-12.4); PLATELET COUNT 155 K/uL (150-450); RBC 2.65 M/uL (3.50-5.50); RDW-CV 15.1 % (11.9-14.6); WBC 6.4 K/uL (4.0-11.0)
[2017-05-02 04:02] LABS: ALBUMIN 2.5 gm/dL (3.5-5.0); ANION GAP 13.3 (10.0-19.0); CALCIUM 7.5 mg/dL (8.5-10.5); CREATININE 1.3 mg/dL (0.5-1.1); POTASSIUM 4.3 mMol/L (3.7-5.1); TOTAL BILIRUBIN 0.3 mg/dL (0.0-1.5); TOTAL PROTEIN 5.4 g/dL (6.0-8.4)
[2017-05-02 05:25] LABS: ABSOLUTE NEUTROPHIL CT (ANC) 4.2 K/uL (1.8-7.8); BANDED NEUTROPHIL # 0.6 K/uL (0.0-0.1); BANDED NEUTROPHILS % 9 %; LYMPHOCYTE % 31 %; MONOCYTE # 0.1 K/uL (0.0-1.0); SEGMENTED NEUTROPHIL # 3.6 K/uL (1.8-7.8); SEGMENTED NEUTROPHIL % 56 %
--- NOTE | 2017-05-02 05:32 | NUR ---
Significant events: Pt A/Ox3. VSS, on RA. Up 1PA to commode. No complaints of chest pain or shortness of breath. Heparin gtt continues at 700 units, to be turned off an hour and a half before going down to laborer stores. NaBicarb to be started one hour prior to heart cath. Pt slept most of shift, cooperative with cares.
--- NOTE | 2017-05-02 09:00 | NUR ---
Diabetes Consult: Patient with long standing Type I diabetes and A1C of 8.8%. The patient utilizes a medtronic insulin pump to manage her diabetes. Patient was admitted with chest pain and dka. DKA is resolved and patient's fasting blood sugar is 149. She is receiving Novolog correction every 6 hours and will be taken to the home performance laborer later this morning. The patient reports feeling weak and does not want her pump restarted. Insulin pump settings written in the physician progress note. Discussed the patient with Dr. Betancourt and informed her the patient has a TDD of 13 units by pump. Recommend giving the patient Levemir 10 units upon returning from home performance laborer, and Novolog moderate correction. The patient reports she does not routinely dose for carbohydrates through her pump. Recommend CDE reassess the patient's readiness to restart her insulin pump in the morning.
--- NOTE | 2017-05-02 16:59 | NUR ---
Significant Event: A/OX3, VSS ON ROOM AIR. NO COMPLAINTS OF PAIN, EXCEPT WHEN COUGHING. PT. HAS HAD A DRY, NON-PRODUCTIVE COUGH MOST OF THE DAY. TESSALIN PERLES GIVEN @ 0744, CODEINE GIVEN @ 1025. RIGHT GROIN CATH SITE IS COVER WITH GAUZE/TEGADERM DRESSING C/D/I, NO HEMATOMA OR OOZING NOTED. PT. GETS UP 1 ASSIST TO BATHROOM. SLIV TO L)AC. DAUGHTER HERE WITH PT. BLOOD SUGAR BEFORE CATH WAS 426, 12units OF REGULAR INSULIN GIVEN, BS @ 1250 WAS 399 POST CATH, 10units GIVEN OF REGULAR INSULIN. PT. TO RESTART BACK ON OWN INSULIN PUMP IN AM, PUMP ORDERS IN CLEAR SLEEVE IN CHART. PT. SBP STARTING TO CLIMB THIS AFTERNOON UP TO 200'S, HYRDALAZINE GIVEN X1 @ 1531, BP BACK DOWN. CAN GIVEN HYDRALAZINE Q4H SBP >140. Follow up: INSULING PUMP TO BE STARTED IN AM, MONITOR BP.
[2017-05-02 20:03] LABS: ALBUMIN 2.7 gm/dL (3.5-5.0); ANION GAP 13.8 (10.0-19.0); CALCIUM 7.7 mg/dL (8.5-10.5); CREATININE 1.2 mg/dL (0.5-1.1); PHOSPHORUS 2.2 mg/dL (2.5-4.9); POTASSIUM 3.8 mMol/L (3.7-5.1)
--- NOTE | 2017-05-03 04:48 | NUR ---
Significant Event: PATIENT IS A/O X3 BUT FORGETFUL. VSS. HR 60-70'S. SBP 120-180'S. 10MG IVP HYDRALAZINE GIVEN X1 FOR SBP >160. AFEBRILE. 02 SATS IN MID 90'S ON RA. C/O PAIN TO LEFT NECK AND THROAT. TYLENOL GIVEN X1 WITH SOME RELIEF. PERSISTANT COUGH. PHERNERGAN WITH CODIENE GIVEN X2 AND TESSALON PERLS GIVEN X1 WITH SOME RELIEF. LUNGS CONTINUES TO SOUNDS SLIGHTLY COARSE WITH CRACKLES. PHYISICAN NOTIFIED. 1MG IVP BUMEX GIVEN X1. 2100 ML UOP SINCE. PATIENT UP WITH SBA BUT IS UNSTEADY. MINESH ACTIVE. STILL NEED HEMATEST X2. CONTINUES TO HAVE STRESS INCONTINENCE WITH COUGH. BRIEF ON AND CHANGED FREQUENTLY. UP TO BEDSIDE COMMODE. C/O URGENCY. RIGHT GROIN SITE IS SOFT, NO HEMATOMA NOTED, AND CSM WNL. IV TO RIGHT FOREARM SL. ON ACHS ACCUCHECKS AND CARB COUNT INSULIN. Follow up: CONTINUE TO MONITOR PER PLAN OF CARE.
[2017-05-03 05:07] LABS: ALBUMIN 3.1 gm/dL (3.5-5.0); ANION GAP 12.6 (10.0-19.0); CALCIUM 8.2 mg/dL (8.5-10.5); CREATININE 1.2 mg/dL (0.5-1.1); POTASSIUM 3.6 mMol/L (3.7-5.1); TOTAL PROTEIN 6.5 g/dL (6.0-8.4)
[2017-05-03 05:12] LABS: TOTAL BILIRUBIN 0.6 mg/dL (0.0-1.5)
--- NOTE | 2017-05-03 12:12 | NUR ---
Introduced self and role of care management to patient and her daughter. She lives with her in [place]. She states that her is currently at the [facility]. She states that she is able to do all her own ADL's. Her family does assist if needed. Her daughter did inquire about services that would be avialable for patient on discharge. I offer home health. Patient and daughter both feel home health would be a good idea to monitor patient status and medications. They want home health thru [facility]. I called [facility] in [place] and made referral to [facility]. Faxed referral information. Face to face on chart. Will continue to follow.
--- NOTE | 2017-05-03 13:18 | NUR ---
[facility] note: 0900 Patient states she does not want to start back on insulin pump at this time, CDE will check in with patient this afternoon. Patient requests a Comfort infusion set, obtained this set from the [facility] and new batteries inserted in meter for testing. Novolog insulin vial obtained from pharmacy. CDE assisted patient in restarting her Agate insulin pump at 1245. Patient does have some difficulty seeing without her glasses, daughter agrees to bring glasses for patient. -80 % temp basal rate is set in the pump, to run until 2100 05/03/17, due to patient receiving Levemir insulin 10 units at HS on 05/02/17 Patient blood sugar was 234 at 1245, and she ate 30 grams of carb for lunch, with bolus calculation and recorded on log sheet. Insulin infusing per Agate pump in site on left upper, outer abdomin. Pump safety sheet is given to patient and highlighted most important topics to prevent future problems. Patient is instructed to inform nurses when she tests her blood sugars, since she has difficulty seeing the log sheet to record blood sugars and insulin doses. Patient states understanding. Will continue to follow throughout hospital stay.
--- NOTE | 2017-05-03 15:37 | NUR ---
[facility] note: 1500 Assisted patient in checking a blood sugar at 1500, result was 194. Insulin pump intact and patient agrees to let the nurses know if she has further questions, or needs assistance.
[2017-05-03 18:51] LABS: ANION GAP 13.6 (10.0-19.0); CALCIUM 8.3 mg/dL (8.5-10.5); CREATININE 1.3 mg/dL (0.5-1.1); MAGNESIUM 1.6 mg/dL (1.8-2.6); POTASSIUM 3.6 mMol/L (3.7-5.1)
--- NOTE | 2017-05-03 19:53 | NUR ---
PATIENT RECEIVED BUMEX X2 TODAY AND ALBUMIN X1, PATIENT HAS HAD OVER 2000 ML UOP TODAY.
[2017-05-04 04:44] LABS: BASOPHIL % 0.4 %; EOSINOPHIL # 0.3 K/uL (0.0-0.5); EOSINOPHIL % 4.9 %; HEMATOCRIT 26.9 % (33.0-46.0); HEMOGLOBIN 8.9 g/dL (10.0-15.0); IMMATURE GRANULOCYTE % 0.4 %; LYMPHOCYTE # 1.3 K/uL (0.8-4.0); LYMPHOCYTE % 25.4 %; MCHC 33.1 gm/dL (32.0-36.5); MCV 90.6 fl (83.0-98.0); MONOCYTE # 0.5 K/uL (0.0-1.0); MONOCYTE % 9.6 %; MPV 11.6 fl (9.4-12.4); NEUTROPHIL % 59.3 %; NRBC % 0 /100WBC (0-0.00); PLATELET COUNT 162 K/uL (150-450); RBC 2.97 M/uL (3.50-5.50); RDW-CV 14.6 % (11.9-14.6); WBC 5.1 K/uL (4.0-11.0)
[2017-05-04 05:02] LABS: ALBUMIN 3.1 gm/dL (3.5-5.0); ANION GAP 13.3 (10.0-19.0); CALCIUM 7.8 mg/dL (8.5-10.5); CREATININE 1.1 mg/dL (0.5-1.1); PHOSPHORUS 3.1 mg/dL (2.5-4.9); POTASSIUM 3.3 mMol/L (3.7-5.1)
--- NOTE | 2017-05-04 05:35 | NUR ---
Significant event: A/O x 3. Up with SBA. 3000ml UOP. Lung sounds slightly coarse. Slight cough, patient feels it is better than it has been. rested well no c/o pain throughout the night.
[2017-05-04 08:07] LABS: BILIRUBIN URINE NEGATIVE (NEGATIVE); BLOOD URINE 150 /UL (NEGATIVE); GLUCOSE URINE NEGATIVE (NEGATIVE); KETONE URINE NEGATIVE (NEGATIVE); LEUKOCYTES URINE 500 /UL (NEGATIVE); NITRITE URINE POSITIVE (NEGATIVE); PH URINE 6.5 (4.0-8.0); PROTEIN URINE 100 mg/dL (NEGATIVE); UROBILINOGEN URINE 1 mg/dL (NORMAL)
[2017-05-04 08:16] LABS: COLOR URINE YELLOW (YELLOW); TURBIDITY URINE 4+ (CLEAR)
[2017-05-04 08:21] LABS: BACTERIA URINE MANY (NEGATIVE); EPITHELIAL URINE RARE #/HPF (NEGATIVE); WBC URINE FULL FIELD #/HPF (NEGATIVE)
--- NOTE | 2017-05-04 13:39 | NUR ---
[facility] note: Check in with patient twice during the day, denies need for any asistance with her pump, but still does not have her glasses, so has difficulty seeing the pump screen. Assistance from nurses and daughter, at bedside to record blood sugars and insulin doses. Continues to check her own blood sugars, she is running low on test strips, so will check to see if we have some samples in the [facility].
[2017-05-04 17:25] LABS: ANION GAP 12.9 (10.0-19.0); CALCIUM 7.9 mg/dL (8.5-10.5); CREATININE 1.3 mg/dL (0.5-1.1); POTASSIUM 3.9 mMol/L (3.7-5.1)
--- NOTE | 2017-05-04 19:07 | NUR ---
PATIENT HAS BEEN UP IN FUNK X2 TODAY AND TOLERATED IT WELL. PATIENT HAS BEEN UP AND DOWN IN ROOM TO BATHROOM AND DOING WELL. PATIENTS WAS HAVING BURNING WITH URINATION THIS AM UA WAS SENT. PATIENT STARTED ON ANTIBIOTIC FOR UA.
--- NOTE | 2017-05-05 04:41 | NUR ---
Significant Event: A/0X3. RESTED IN BED ALL OF SHIFT. TURNS SELF. SBA UP TO BR. AFEBRILE. HR 70'S SBP 150-190'S. HYDRALAZINE IVP GIVEN X1. 95-98% ON RA. TYLENOL GIVEN X1 FOR HEADACHE. LAST DOSE WAS AT 2252. PATIENT WAS ABLE TO FIND RELIEF AND NO C/ OF PAIN THE REST OF THE SHIFT. IV TO R) FA SL. OVERNIGHT TREND OX IN PROGRESS. VOIDED 1600 MLS OUT. NO C/O OF BURING OR FREQUENCY WITH URINATION. CONTINUE WITH PO KEFLEX. NO BM THIS SHIFT. STILL NEED HEMATEST X2. INSULIN PUMP TO L) ABD. PATIENT CHECKS BLOOD SUGARS AND DOCUMENTS ON LOG. BLOOD SUAGR LAST NIGHT WAS 266. PATIENT GAVE HERSELF THE CORRECT AMOUNT OF INSULIN. D/C MEDS PRINTED AND ON THE CHART. POSSIBLE D/C HOME TODAY. Follow up: CONTINUE WITH PLAN OF CARE. up:
[2017-05-05 05:01] LABS: ANION GAP 14.7 (10.0-19.0); CALCIUM 7.9 mg/dL (8.5-10.5); CREATININE 1.2 mg/dL (0.5-1.1); PHOSPHORUS 3.1 mg/dL (2.5-4.9); POTASSIUM 4.7 mMol/L (3.7-5.1)
--- NOTE | 2017-05-05 10:44 | NUR ---
PT SCREENED D/T LOS. EST NEEDS: [id number] KCALS, 83 GM PROTEIN, 1 ML/KCAL FLUIDS. PT EATING WELL, PROBABLY DC TOMORROW. NO NUTRITION-RELATED DIAGNOSIS IDENTIFIED. WILL ASSIST NEEDED.
--- NOTE | 2017-05-05 11:00 | NUR ---
Diabetes consult: Patient with blood sugar over 300 this morning. Insulin bolus of Novolog brought the patient down to 279 one hour later. Currently the patient's blood sugar is 269 and she delivered an additional bolus per pump of 1.8 units. Site intact. Will continue to follow. Patient has extra pump sites and made need to change the site if blood sugar starting elevating.
--- NOTE | 2017-05-05 16:43 | NUR ---
Significant Event: A/OX3, VSS ON ROOM AIR. ROUND 0810 THIS AM, PT. HAD AN EPISODE WHERE SHE WAS STARING OFF INTO SPACE WHEN CARDIAC REHAB WAS TRYING TO WALK HER FOR ABOUT [address] BYRD CALLED & JORGE ALBERTO, CAME INTO ROOM BP WAS 132/59 WHEN PT. WAS SITTING IN W/C, BLOOD SUGAR WAS 279. SOON PT. SAT INTO W/C SHE SNAPPED OUT OF WHAT SHE WAS DOING & WAS OKAY. ATTEMPTED ORTHOSTATIC BP'S AROUND 0900- 99/50, 68 (LYING), 109/53, 70 (SITTING), STOOD PT. WAS SHE STARTED TO GET UNSTEADY & STARING OFF INTO SPACE AGAIN, SAT HER BACK DOWN & BP WAS 100/51, 71. PT. HAS BEEN FINE REST OF THE DAY, NO COMPLAINTS OF PAIN, DID WALK TO END OF FUNK WITH CARDIAC REHAB WITHOUT ANY PROBLEMS. MODERATE BM X1. SLIV TO R)FA. AM LABS, POSSIBLE D/C TO HOME IN AM. PT. ON OWN INSULIN PUMP. STILL COUGHING ON/OFF THROUGHOUT SHIFT. Follow up: CONTINUE WITH POC.
[2017-05-06 04:22] LABS: ALBUMIN 3.1 gm/dL (3.5-5.0); ANION GAP 9.7 (10.0-19.0); CALCIUM 7.9 mg/dL (8.5-10.5); POTASSIUM 4.7 mMol/L (3.7-5.1)
--- NOTE | 2017-05-06 05:33 | NUR ---
Significant Event: A/0X3. RESTED IN BED ALL OF SHIFT. TURNS SELF. SBA UP TO BR. AFEBRILE. VSS ON RA. TYLENOL GIVEN X1. PATIENT WAS ABLE TO FIND RELIEF AND REST COMFORTABLY THE REST OF THE NIGHT. IV TO R) FA SL. VOIDED 800 MLS THIS SHIFT. NO BM THIS SHIFT. STILL NEED HEMATEST X2. D/C MEDS PRINTED AND ON THE CHART. POSSIBLY D/C HOME TODAY. STILL HAS THE OCCASIONAL COUGH OFF AND ON BUT IMPROVING. Follow up: CONTINUE WITH PLAN OF CARE.
--- NOTE | 2017-05-06 10:08 | NUR ---
Diabetes Consult: Patient is planning to discharge today. FBS is 179 this morning. Patient reports she will change out her insulin pump site upon returning home. Denies any needs or concerns prior to discharge.
[2017-05-06] MEDS ORDERED: LIPITOR40 MG PO (11:47)
[2017-05-06] MEDS ORDERED: KEFLEX500 MG PO (11:48)
[2017-05-06] MEDS ORDERED: PLAVIX75 MG PO (11:52)
[2017-05-06] MEDS ORDERED: HUMIBID LA (MU600 MG PO (11:55)
[2017-05-06] MEDS ORDERED: IMDUR30 MG PO (11:57)
--- NOTE | 2017-05-06 12:57 | NUR ---
Patient has signed discharge orders on chart. I called [facility] and updated them that patient will be discharging today. Home Health orders faxed.
--- NOTE | 2017-05-06 14:22 | NUR ---
PT. A/OX3, VSS ON ROOM AIR. SBP 150-170'S THIS AM, DR. BYRD AWARE & IS OKAY FOR PT. TO BE D/C TO HOME. NO COMPLAINTS OF PAIN THIS SHIFT. NO EPISODES OF STARING OFF INTO SPACE TODAY. IV REMOVED FROM R)FA WITHOUT ANY PROBLEMS. PT. UP AD RISA IN ROOM. DISMISSAL INSTRUCTIONS, NEW MEDICATIONS GONE OVER WITH PATIENT AND DAUGHTER, NO FURTHER QUESTIONS AT THIS TIME. RIGHT GROIN CATH SITE HAS BAND-AID, DRESSING C/D/I, BRUISING NOTED TO SITE, NO HEMATOMA. ALL BELONGINGS SENT HOME WITH FAMILY. PT. WILL EAT LUNCH BEFORE LEAVING TOWN AND CHECK BLOOD SUGAR THEN AND TREAT.
== END 2017-05-06 12:25 | disposition home health service (06) | DRG 246 ==
LOC: GPCU 05:09
PROVIDERS: Family Medicine; Internal Medicine; Internal Medicine Interventional Cardiology; Internal Medicine Nephrology; ADMIT Internal Medicine
DX: I21.4 Non-ST elevation (NSTEMI) myocardial infarction (principal); E10.10 Type 1 diabetes mellitus with ketoacidosis without coma; N17.9 Acute kidney failure, unspecified; N39.0 Urinary tract infection, site not specified; E78.5 Hyperlipidemia, unspecified; E10.22 Type 1 diabetes mellitus with diabetic chronic kidney disease; E87.6 Hypokalemia; E83.42 Hypomagnesemia; E87.70 Fluid overload, unspecified; I95.1 Orthostatic hypotension; J20.8 Acute bronchitis due to other specified organisms; B96.20 Unspecified Escherichia coli [E. coli] as the cause of diseases classified elsewhere; D63.1 Anemia in chronic kidney disease; I12.9 Hypertensive chronic kidney disease with stage 1 through stage 4 chronic kidney disease, or unspecified chronic kidney disease; N18.3 Chronic kidney disease, stage 3 (moderate); I25.10 Atherosclerotic heart disease of native coronary artery without angina pectoris; Z95.1 Presence of aortocoronary bypass graft; Z95.5 Presence of coronary angioplasty implant and graft; Z96.41 Presence of insulin pump (external) (internal); Z91.11 Patient's noncompliance with dietary regimen; Z96.651 Presence of right artificial knee joint
CPT/HCPCS: C1725; C1760; C1769; C1874; C1887; C9600; J0360; J0583; J1644; J2250; J3010; J3475; J7030; J7060; J7512; P9045; P9047

== ENCOUNTER → 2017-05-01 | Outpatient (CLI) | payer MEDICARE, OTHER ==
[~2017-05-01] MED LIST: ASPIRIN LO-DOSE81 MG PO; HUMIBID LA (MU600 MG PO; IMDUR30 MG PO; KEFLEX500 MG PO; LEVOTHROID (SY25 MCG PO; LIPITOR40 MG PO; MIDODRINE HCL10 MG PO; NEURONTIN300 MG PO; NOVOLOG100 UNIT/M SUB-Q; PLAVIX75 MG PO; PROMETH-CODEIN 65 ML PO; PROZAC20 MG PO; VITAMIN D-32000 UNI1 PO; ZOCOR20 MG PO
== END | disposition disaster alternative care site (69) ==
LOC: GAIR 04:28
DX: I21.4 Non-ST elevation (NSTEMI) myocardial infarction (principal); E13.10 Other specified diabetes mellitus with ketoacidosis without coma; M19.90 Unspecified osteoarthritis, unspecified site; Z90.710 Acquired absence of both cervix and uterus; Z96.651 Presence of right artificial knee joint; Z79.82 Long term (current) use of aspirin; Z79.4 Long term (current) use of insulin; Z79.899 Other long term (current) drug therapy; Z88.2 Allergy status to sulfonamides; Z95.1 Presence of aortocoronary bypass graft; R21 Rash and other nonspecific skin eruption
CPT/HCPCS: A0422; A0431; A0436